=== PATIENT | female | born 1995 | race Caucasian/White ===

== ENCOUNTER 2023-12-07 02:00 | Emergency (ER) | payer OTHER ==
[~2023-12-07 02:00] MED LIST: NS 1,000 ML IV ONE
[2023-12-07 02:20] VITALS: BP 121/71
[2023-12-07] MEDS ORDERED: NIFEdipine 10 MG CAP PO ONE (02:30)
[2023-12-07 02:36] LABS: HEMATOCRIT 38.5 % (37.0-47.0); HEMOGLOBIN 14.2 g/dL (12.5-16.0); MEAN CELL VOLUME 95 fl (78-100); MEAN CORPUSCULAR HEMOGLOBIN 35 pg (27-31); MEAN CORPUSCULAR HGB CONC 37 g/dL (33-37); MEAN PLATELET VOLUME 11.3 fl (7.4-10.4); PLATELET COUNT 375 K/mm3 (130-400); RED BLOOD COUNT 4.06 M/mm3 (4.10-5.30); RED CELL DISTRIBUTION WIDTH 12.3 % (11.5-14.5)
[2023-12-07 02:39] LABS: ALBUMIN 3.6 g/dL (3.5-5.0)
[2023-12-07 02:42] LABS: TOTAL PROTEIN 6.9 g/dL (6.4-8.3)
[2023-12-07 02:44] LABS: TOTAL BILIRUBIN 0.5 mg/dL (0.2-1.2)
[2023-12-07 02:54] LABS: BAND 3 % (0-10); LYMPHOCYTE 22 % (20-51); MONOCYTE 8 % (3-10)
[2023-12-07 02:55] LABS: METAMYELOCYTE 2 % (0-0); MYELOCYTE 2 % (0-0); NEUTROPHILS 63 % (42-75); TEAR DROP CELLS 1+
[2023-12-07] MEDS ORDERED: NOVAPLUS L40 MG/0.4 SQ (03:02)
== END 2023-12-07 02:35 | disposition short-term general hospital (02) ==
LOC: ED 02:00
PROVIDERS: Registered Nurse
DX: O47.03 False labor before 37 completed weeks of gestation, third trimester (principal); Z3A.32 32 weeks gestation of pregnancy
CPT/HCPCS: J7030